=== PATIENT | male | born 1940 | race Caucasian/White ===

== ENCOUNTER 2017-04-17 15:04 | Outpatient (CLI) | payer MEDICARE, OTHER ==
[2014-07-28 09:46] VITALS: BP 118/56
[2017-04-17 16:15] LABS: eGFR (African) > 60; eGFR (Non-African) 57
== END 2017-04-17 15:16 ==
LOC: LAB 15:04
PROVIDERS: ATTEND Family Medicine
DX: I10 Essential (primary) hypertension (principal)
CPT/HCPCS: 36415; 80053

== ENCOUNTER 2017-05-11 10:41 | Outpatient (CLI) | payer MEDICARE, OTHER ==
[2014-07-28 09:46] VITALS: BP 118/56
[2017-05-11 11:28] LABS: eGFR (African) > 60; eGFR (Non-African) 52
== END 2017-05-11 10:42 ==
LOC: LAB 10:41
PROVIDERS: ATTEND Family Medicine
DX: E11.9 Type 2 diabetes mellitus without complications (principal)
CPT/HCPCS: 36415; 80053; 80061; 82043; 84153; 84402; 84403

== ENCOUNTER 2018-08-14 10:07 | Outpatient (CLI) | payer MEDICARE, OTHER ==
[2014-07-28 09:46] VITALS: BP 118/56
[2018-08-14 11:40] LABS: BASOPHILS % 0.4 (0.0-1.5); MEAN CORPUSCULAR HEMOGLOBIN 32.2 pg (28.0-34.0); MONOCYTES % 10.9 % (0.0-11.0); NEUTROPHILS # 4.3 # k/uL (1.4-7.7)
[2018-08-14 12:16] LABS: eGFR (Non-African) 42
[2018-08-14 13:05] LABS: APPEARANCE,URINE CLEAR (CLEAR); COLOR,URINE YELLOW (YELLOW); OCCULT BLOOD,URINE NEGATIVE (NEGATIVE); PH URINE 5.5 (5.0 - 8.0); UROBILINOGEN URINE 0.2 Eu (0.2-1.0)
== END 2018-08-14 10:10 ==
LOC: LAB 10:07
PROVIDERS: ATTEND Clinical Nurse Specialist Medical-Surgical
DX: M54.5 Low back pain (principal); E66.9 Obesity, unspecified
CPT/HCPCS: 36415; 80053; 80061; 81002; 82306; 82607; 83735; 83970; 84100; 84439; 84443; 84550; 85025